=== PATIENT | female | born 1945 | race Caucasian/White ===

== ENCOUNTER → 2017-07-30 | Outpatient (CLI) | payer MEDICARE ==
[~2017-07-30] MED LIST: ADAL40PE4 SQ; AMIT75TA42 PO; ASPI-715 PO; LEVO100T95 PO; METH2.5T43 PO; OMEP40CA45 PO
--- NOTE | 2017-07-31 17:14 | RADIOLOGY IMAGING REPORT ---
FACILITY: [facility] PATIENT NAME: LAURA GEE : [id number] MR: [id number] V: [id number] EXAM DATE: ORDERING PHYSICIAN: ÁNGEL ROBERTSON TECHNOLOGIST: Diandra Sosa EXAMINATION:TWO-DIMENSIONAL ECHOCARDIOGRAPH REASON:HISTORY OF PALPITATIONS AND PSVT AND POSSIBLY ATRIAL FLUTTER. 2D Measurements (normal values in centimeters) LV endLV endRV endVent.LV PostAorticLeftPercent DiastolicSystolicDiastolicSeptumWallRootAtriumShortening (3.5-5.7)(0.9-2.6)(0.6-1.1)(0.6-1.1)(2.0-3.7)(1.9-4.0)(25-35%) [id number]% STROKE VOLUME: 39 mL. ESTIMATED EJECTION FRACTION:68% PARASTERNAL LONG AXIS: Overall left ventricular function does appear to be normal and chamber sizes appear to be normal. The patient appears to be in sinus rhythm in this view. Aortic valve and mitral valve both appear to open normally. There is a trace of mitral and tricuspid insufficiency noted. PARASTERNAL SHORT AXIS: Overall left ventricular function again appears to be normal. The aortic valve is trileaflet in configuration and appears to open normally although it is not well seen. Color examination of the aortic valve was unremarkable. Color examination of the tricuspid valve revealed a trace of tricuspid insufficiency present. Occasional premature ventricular contraction is noted. Aortic valve and mitral valve area both measure within normal range at 2.1 and 2.4 cm2 respectively. Left atrial volume is measured within normal range at 18 mL/m2. Right atrial volume is mildly increased at 36 mL/m2. Tricuspid regurgitation V-max is measured at 2.21 m/sec. SUBCOSTAL VIEW: No pericardial effusion was noted. No atrial septal or ventricular septal defects were appreciated. IVC is normal in size. Doppler examination of the mitral valve in diastole does reveal a normal pattern and there is no reversal with Valsalva maneuver. Medial and E prime velocities are somewhat decreased. OVERALL IMPRESSION: 1. Normal left ventricular ejection fraction of 68%. The diastolic function is somewhat difficult to interpret as the patient does have normal E wave and A wave with no reversal with the Valsalva maneuver but the medial and lateral E prime velocities are decreased suggestive of some decrease in diastolic function. 2. Mild right atrial enlargement with all the other chamber sizes being normal. 3. A trileaflet aortic valve with no abnormalities. 4. A trace of pulmonic insufficiency. 5. A trace of mitral insufficiency. 6. A trace of tricuspid insufficiency with estimated right ventricular systolic pressures within normal range at 28 mmHg which does include an estimated right atrial pressure of 8 mmHg. 7. The patient appeared to be in normal sinus rhythm with an occasional premature ventricular contraction. Dictated by: Popeye Sena M.D. on 07/30/2017 at 18:41 Transcribed by: LITZY on 07/31/2017 at 11:38 Approved by: Popeye Sena M.D. on 07/31/2017 at 17:12 [facility]
== END ==
LOC: US 01:04
PROVIDERS: ATTEND Internal Medicine Cardiovascular Disease
DX: I51.7 Cardiomegaly (principal); I37.1 Nonrheumatic pulmonary valve insufficiency; I34.0 Nonrheumatic mitral (valve) insufficiency; I07.1 Rheumatic tricuspid insufficiency; I49.3 Ventricular premature depolarization
CPT/HCPCS: 93306

== ENCOUNTER → 2018-10-25 | Outpatient (CLI) | payer MEDICARE ==
--- NOTE | 2018-10-25 10:43 | RADIOLOGY IMAGING REPORT ---
FACILITY: [facility] PATIENT NAME: Chris Browning : 1945 MR: [id number] V: [id number] EXAM DATE: ORDERING PHYSICIAN: ANA JAVIER TECHNOLOGIST: Location: [facility] Patient: Chris Browning : 1945 Visit/Account:[id number] Date of Sevice: 10/25/2018 DEXA Scan Clinical history: Postmenopausal. Comparison: DEXA scan from 02/11/2016 The left forearm only was evaluated. By history the patient has bilateral hip arthroplasties and pos toperative changes the lumbar spine with metal placement since the last DEXA scan. FOREARM: The bone mineral density (BMD) measured in the ULTRADISTAL Left forearm, where trabecular bone predom inates, correlates with a Z-score of -1.1 and a T-score of -3.2 which is osteoporosis as defined by t he World Health Organization. The corresponding risk of fracture in the distal forearm is 8-12 times increased compared with a young adult reference population. This value has decrease by 2.8 % since the prior study. More than 5% change is considered significant. The bone mineral density (BMD) in the MIDSHAFT of the forearm, where cortical bone predominates, dolores elates with a Z-score of -0.1 and a T-score of -2.1 which is osteopenia as defined by the World Healt h Organization. The corresponding risk of fracture in the midshaft of the forearm is 4-6 times increa sed compared with a young adult reference population. This value has decrease by 2.8 % since the mary kate or study. More than 5% change is considered significant. IMPRESSION: Left Forearm: Osteoporosis. There has been 2.8% decrease in the bone mineral density since the prev ious exam The next DEXA scan of this patient should include the following sites: the left forearm. FRAX? WHO Fracture Risk Assessment Tool link: <http://www.shef.ac.uk/FRAX/tool.jsp?locationValue=9> PLEASE NOTE: 1) The World Health Organization defines low BMD as follows: T-score Normal > -1 Osteopenia < -1 and > -2.5 Osteoporosis < -2.5 without fractures Established osteoporosis < -2.5 with fractures 2) In general, you may wish to consider: Diagnosis Treatment Follow-up DEXA Normal BMD Prevention 2-3 years Osteopenia Prevention/therapy 1-2 years Osteoporosis Therapy Yearly 3) Fracture risk estimated from the T-score is more accurate for vertebral fractures (often spontane ous) than for hip fractures. Report Dictated By: Janett East MD at 10/25/2018 10:36 AM Report E-Signed By: Janett East MD at 10/25/2018 10:39 AM WSN:[email or web address]
--- NOTE | 2018-10-31 08:23 | RADIOLOGY IMAGING REPORT ---
FACILITY: [facility] [place] PATIENT NAME: LAURA GEE : [id number] MR: [id number] V: [id number] EXAM DATE: ORDERING PHYSICIAN: ANA JAVIER TECHNOLOGIST: Jayde Rhoades PROCEDURE:BILATERAL DIGITAL SCREENING MAMMOGRAM WITH CAD ASSISTED INTERPRETATION & 3D TOMOSYNTHESIS COMPARISON:Prior mammograms 04/16/17, 02/11/16, 06/26/13. INDICATIONS:SCREENING FINDINGS: There are scattered areas of fibroglandular density throughout the breasts. The parenchymal pattern has remained stable allowing for difference in mammographic technique & patient positioning. The intramammary fold was not included on this mammogram nor on any of the prior mammograms. The technologist states it was not technically possible to image that portion of the patient's breast. DIAGNOSTIC CATEGORY 1--NEGATIVE. RECOMMENDATIONS: ROUTINE MAMMOGRAM AND CLINICAL EVALUATION. CLINICAL EVALUATION. IMPRESSION: BIRADS 1: Negative. No significant abnormality is seen. Of note the intramammary fold is not imaged on the current mammograms nor any of the prior mammograms by technologist communication it was not technically possible to image that portion of the patient's breast therefore clinical follow-up recommended. Dictated by: Janett East M.D. on 10/29/2018 at 15:39 Transcribed by: NICOLASA on 10/30/2018 at 8:25 Approved by: Janett East M.D. on 10/31/2018 at 8:22 [facility]
== END ==
LOC: MAMO 09-26 00:13
PROVIDERS: ATTEND Family Medicine
DX: Z12.31 Encounter for screening mammogram for malignant neoplasm of breast (principal); N95.9 Unspecified menopausal and perimenopausal disorder; M81.0 Age-related osteoporosis without current pathological fracture
CPT/HCPCS: 77063; 77067; 77080